=== PATIENT | female | born 1965 | race Caucasian/White ===

== ENCOUNTER 2020-06-15 00:30 | Emergency (ER) | payer MEDICAID, SELFPAY ==
[2020-06-15 00:15] VITALS: BP 163/91; PULSE 101; RESP 15; TEMP 36.8; O2SAT 97; BMI 42.9; BMI 47.2
--- NOTE | 2020-06-15 00:15 | ECG_ITS ---
APPROVED REPORT Exam: Resting ECG HR:98 bpm ECG Measurements Heart Rate 98 AXES AL 142 P 45 QRSd 86 QRS 19 QT 348 T 49 QTc 444 Conclusion Normal sinus rhythm Normal ECG Electronically signed by : Michael Reyna, 06/15/2020 19:10:13
--- NOTE | 2020-06-15 00:16 | XR_ITS ---
PROCEDURE: XR CHEST 2V CLINICAL HISTORY: cp Chest pain COMPARISON: No exams were available for comparison FINDINGS: The cardiomediastinal silhouette and pulmonary vascularity are within normal limits. The lungs are clear without infiltrates, suspicious nodules, or pleural effusions. No acute bony abnormalities. IMPRESSION: No acute findings. Dictated by: Slim Adame MD 06/15/2020 05:17 Slim Adame MD in [place] 06/15/2020 05:17
[2020-06-15 00:27] LABS: Basophils # 0.1 K/mm3 (0-0.2); Basophils % 0.7 % (0.1-2.0); Eosinophils # 0.3 K/mm3 (0.0-0.4); Eosinophils % 3.5 % (0.1-12.0); Hematocrit 42.3 % (37.0-47.0); Hemoglobin 13.8 g/dL (12.2-16.2); Lymphocytes # 2.9 K/mm3 (0.7-4.5); Lymphocytes % 34.9 % (10-50); Mean Corpuscular HGB Conc 32.6 g/dL (31.8-35.4); Mean Corpuscular Hemoglobin 29.7 pg (27.0-31.2); Mean Corpuscular Volume 90.9 fl (81-99); Mean Platelet Volume 8.3 fl (7.4-10.4); Monocytes # 0.6 K/mm3 (0.1-1.0); Monocytes % 7.2 % (1.7-9.3); Neutrophils # 4.4 K/mm3 (1.8-7.8); Neutrophils % 53.8 % (37.0-80.0); Platelet Count 135 K/mm3 (142-424); Red Blood Count 4.66 M/mm3 (4.20-5.40); Red Cell Distribution Width 14.2 % (11.5-17.5); White Blood Count 8.2 K/mm3 (4.8-10.8)
--- NOTE | 2020-06-15 00:31 | HMH.EDGENADL ---
ED Disposition Clinical Impression: Epigastric pain, Atypical chest pain Disposition: Home, Self-Care Condition on Discharge: Good Instructions: DI for Atypical Chest Pain, DI for Epigastric Pain Additional Instructions: You have been evaluated for epigastric pain, atypical chest pain. Please take all medications as prescribed. Follow-up with your primary care doctor in 1 to 2 days. Follow-up with your implementation advisor. Return to the emergency department if you have any new or worsening symptoms, chest pain with exertion, syncope, shortness of breath, any other concern. Referrals: Ana Gonzalez PA [Primary Care Provider] - Time of Disposition: - Critical Care Critical Care Time: No Attestation: On , the high probability of a clinically significant, sudden or life threatening deterioration of the following system(s) required my full and direct attention, intervention and personal management. The time I documented below is in addition to time spent performing reported procedures but includes the following listed in this critical care notation. Medical Decision Making - Medical Records Medical records reviewed: Yes: I reviewed the patient's medical records. - Brian Inquiry Pt receiving controlled substance: No Vital Signs: 06/15/20 00:15 06/15/20 01:46 Temperature 98.3 F Temperature Source Oral Pulse Rate [Right Brachial] 101 H 94 H Respiratory Rate 15 16 Blood Pressure [Right Arm] 163/91 H Blood Pressure Mean [Right Arm] 115 Blood Pressure Source [Right Arm] Automatic Cuff Blood Pressure Position [Right Arm] Sitting 02 Sat by Pulse Oximetry 97 95 Oxygen Delivery Method Room Air Room Air - Lab Data Lab Results 06/15/20 00:15: WBC 8.2, RBC 4.66, Hgb 13.8, Hct 42.3, MCV 90.9, MCH 29.7, MCHC 32.6, RDW 14.2, Plt Count 135 L, MPV 8.3, Neut % (Auto) 53.8, Lymph % (Auto) 34.9, [place] % (Auto) 7.2, Eos % (Auto) 3.5, Baso % (Auto) 0.7, Neut # (Auto) 4.4, Lymph # (Auto) 2.9, [place] # (Auto) 0.6, Eos # (Auto) 0.3, Baso # (Auto) 0.1 06/15/20 00:15: Sodium 137, Potassium 4.4, Chloride 101, Carbon Dioxide 35 H, Anion Gap 5.4, BUN 12, Creatinine 0.90, Estimated Creat Clear 60, Estimated GFR 65, Est GFR ( Amer) 78, Glucose 93, Calcium 9.4, Troponin I < 0.01, Amylase 38 06/15/20 00:15: Lipase 57 06/15/20 00:15: Total Bilirubin 0.4, Direct Bilirubin 0.3, Conjugated Bilirubin 0.0, Indirect Bilirubin 0.1, Unconjugated Bilirubin 0.1, AST 45 H, ALT 45, Alkaline Phosphatase 94, Total Protein 6.9, Albumin 3.8 06/15/20 02:16: Troponin I < 0.01 Result diagrams: 06/15/20 00:15 06/15/20 00:15 Orders (Tests/Meds): ED MEDICATIONS Discontinued Medications Generic Name Dose Route Start Last Admin Trade Name Freq PRN Reason Stop Dose Admin Aspirin 324 mg 06/15/20 00:17 06/15/20 00:20 Aspirin 81mg Chewable Tablet PO 06/15/20 00:18 324 mg ONCE ONE Administration ORDERS Category Date Time Status US RUQ [US abdomen limited] Stat Exams 06/15/20 00:47 Taken XR chest 2V Stat Exams 06/15/20 00:16 Taken Troponin I Q3H Lab 06/15/20 06:30 Ordered - ECG Data Tracing #1 Sinus rhythm with ventricular rate of 98 bpm. QRS 88, QTc 444. Flattening of the ST segments in V1. No other ST segment changes. No arrhythmia. - GENARO Score for Non-Stemi Age of Patient: 50-59 years old Heart Rate: 90-109 bpm Systolic Blood Pressure: 140-159 mmHg Serum Creatinine: 0.40-0.79 mg/dl CHF [place] Class: I-No CHF Other Risk Factors: None Non-Stemi Risk Score: 84 Medical Decision Narrative: In summary this is a 55-year-old female presenting to the emergency department with epigastric pain, bloating. Patient is clinically stable on arrival. Vital signs are stable. Differential diagnoses include acute coronary syndrome, peptic ulcer disease, reflux, indigestion, constipation. Will obtain CBC, CMP, chest x-ray, EKG, troponin profile, lipase. Patient given 325 chewable aspirin. On my evaluation, she says s
[2020-06-15 00:35] LABS: Alanine Aminotransferase 45 U/L (12-78); Albumin Level 3.8 g/dl (3.5-5.0); Alkaline Phosphatase 94 U/L (38-126); Amylase 38 U/L (30-110); Anion Gap 5.4 mEq/L (5-15); Aspartate Amino Transferase 45 U/L (14-36); Bilirubin,Direct 0.3 mg/dl (0.0-0.4); Bilirubin,Indirect 0.1 mg/dL (0.0-0.9); Bilirubin,Total 0.4 mg/dl (0.2-1.3); Bilirubin,Unconjugated 0.1 mg/dL (0.0-1.1); Blood Urea Nitrogen 12 mg/dl (7-17); Calcium 9.4 mg/dl (8.4-10.2); Carbon Dioxide 35 mmol/L (22.0-30.0); Chloride 101 mmol/L (98-107); Creatinine Clearance Estimated 60 mL/min (50-200); Estimated Glomerular Filt Rate 65 ml/min (>60); GFR (African American) 78 ML/MIN (>60); Glucose 93 mg/dl (74-100); Potassium 4.4 mmoL/L (3.5-5.1); Sodium 137 mmol/L (136-145); Total Protein,Serum 6.9 g/dl (6.3-8.2)
[2020-06-15 00:36] LABS: Lipase 57 U/L (23-300)
--- NOTE | 2020-06-15 00:41 | PC.NURSE ---
PT TO RAD VIA WC.
--- NOTE | 2020-06-15 00:47 | US_ITS ---
PROCEDURE: US ABDOMEN LIMITED CLINICAL INDICATION: epigastric, RUQ pain COMPARISON: No exams were available for comparison FINDINGS: PANCREAS: Unremarkable. No obvious mass or abnormal fluid collection. No ductal dilatation LIVER: No focal liver lesions demonstrated. Homogeneous echogenicity. No intrahepatic biliary ductal dilatation evident. There is appropriate direction of blood flow within a non dilated portal vein RIGHT KIDNEY: 4 cm right renal cyst. No hydronephrosis. GALLBLADDER: No gallstones, gallbladder wall thickening, pericholecystic fluid, or biliary dilatation. IMPRESSION: Right renal cyst otherwise negative right upper quadrant. Dictated by: Slim Adame MD 06/15/2020 05:28 Slim Adame MD in [place] 06/15/2020 05:28
[2020-06-15 00:48] LABS: Troponin I < 0.01 ng/ml (0.00-0.034)
--- NOTE | 2020-06-15 00:52 | PC.NURSE ---
PT UP TO ULTRASOUND. DAUGHTER REMAINS AT BEDSIDE
[2020-06-15 01:46] VITALS: PULSE 94; RESP 16; O2SAT 95
[2020-06-15 02:00] VITALS: BP 131/82; PULSE 79; RESP 16; O2SAT 96
[2020-06-15 02:30] VITALS: BP 120/68; PULSE 88; RESP 16; O2SAT 95
[2020-06-15 02:45] LABS: Troponin I < 0.01 ng/ml (0.00-0.034)
[2020-06-15 02:56] VITALS: BP 122/68; PULSE 88; RESP 16; TEMP 36.6; O2SAT 98
== END 2020-06-15 02:59 | disposition home or self-care (01) ==
PROVIDERS: Emergency Provider Emergency Medicine; PCP Physician Assistant Medical
DX: R07.89 Other chest pain (principal); R10.13 Epigastric pain; I10 Essential (primary) hypertension; J45.909 Unspecified asthma, uncomplicated; Z88.6 Allergy status to analgesic agent; Z79.899 Other long term (current) drug therapy; E66.9 Obesity, unspecified; Z68.42 Body mass index [BMI] 45.0-49.9, adult
CPT/HCPCS: 71046; 76705; 80048; 80076; 82150; 83690; 84484; 85025; 93005; 99283

== ENCOUNTER 2020-08-12 17:57 | Inpatient (IN) | payer MEDICAID, SELFPAY ==
[2020-08-12 17:58] VITALS: BP 119/61; PULSE 115; RESP 16; TEMP 37.2; O2SAT 98; BMI 42.9
[2020-08-12 18:06] VITALS: BMI 42.9
--- NOTE | 2020-08-12 18:07 | XR_ITS ---
PROCEDURE: XR HAND RT MIN 3V CLINICAL INDICATION: swollen/redness COMPARISON: CR XR CHEST 2V from 06/15/2020 FINDINGS: No fracture or dislocation. No lytic or blastic change. There is normal mineralization. There is minor narrowing of the 1st carpometacarpal joint. There is mild narrowing of the DIP joints of all the fingers and minor spurring of the IP joint of the thumb. There is mild diffuse soft tissue swelling of the hand particularly dorsum. No foreign bodies are seen. IMPRESSION: Mild generalized soft tissue swelling of the hand suggesting cellulitis, mild osteoarthritic changes base of thumb and DIP joints of the fingers Dictated by: Dr. Earnest Topete MD 08/12/2020 19:50 Dr. Earnest Topete MD in [place] 08/12/2020 19:50
--- NOTE | 2020-08-12 18:15 | HMH.EDGENADL ---
ED Disposition Clinical Impression: Abscess of skin of right wrist, Cellulitis of right wrist Disposition: Admitted as Observation Condition on Discharge: Fair Referrals: Ana Gonzalez PA [Primary Care Provider] - - Critical Care Critical Care Time: No Attestation: On 08/12/20, the high probability of a clinically significant, sudden or life threatening deterioration of the following system(s) required my full and direct attention, intervention and personal management. The time I documented below is in addition to time spent performing reported procedures but includes the following listed in this critical care notation. Medical Decision Making - Brian Inquiry Pt receiving controlled substance: Yes Brian was queried for this patient: Yes Risks and benefits of using a controlled substance: were not discussed with pt by me Vital Signs: 08/12/20 17:58 Temperature 98.9 F Temperature Source Oral Pulse Rate [Right] 115 H Respiratory Rate 16 Blood Pressure [Right Arm] 119/61 Blood Pressure Mean [Right Arm] 80 Blood Pressure Source [Right Arm] Automatic Cuff Blood Pressure Position [Right Arm] Sitting 02 Sat by Pulse Oximetry 98 Oxygen Delivery Method Room Air - Lab Data Lab Results 08/12/20 18:10: WBC 20.5 H*, RBC 4.77, Hgb 13.8, Hct 42.4, MCV 89.0, MCH 28.9, MCHC 32.4, RDW 14.4, Plt Count 260, MPV 8.2, Neut % (Auto) 70.5, Lymph % (Auto) 21.4, [place] % (Auto) 5.8, Eos % (Auto) 1.8, Baso % (Auto) 0.4, Neut # (Auto) 14.5 H, Lymph # (Auto) 4.4, [place] # (Auto) 1.2 H, Eos # (Auto) 0.4, Baso # (Auto) 0.1, Total Counted 100, Neutrophils % (Manual) 76, Band Neutrophils % 8.0, Lymphocytes % (Manual) 15, Monocytes % (Manual) 1 L, Platelet Estimate Normal, RBC Morphology Normal 08/12/20 18:10: Sodium 136, Potassium 4.1, Chloride 100, Carbon Dioxide 32 H, Anion Gap 8.1, BUN 19 H, Creatinine 1.10 H, Estimated Creat Clear 49, Estimated GFR 51 L, Est GFR ( Amer) 62, Glucose 129 H, Calcium 9.5, Total Bilirubin 0.7, AST 41 H, ALT 47, Alkaline Phosphatase 109, Total Protein 7.9, Albumin 4.4, Globulin 3.5 H, Albumin/Globulin Ratio 1.3 08/12/20 18:25: Lactate 1.2 Result diagrams: 08/12/20 18:10 08/12/20 18:10 Orders (Tests/Meds): ED MEDICATIONS Generic Name Dose Route Start Last Admin Trade Name Freq PRN Reason Stop Dose Admin Vancomycin HCl 2,250 mg/ 250 mls @ 125 mls/hr 08/12/20 18:33 08/12/20 18:48 Sodium Chloride IV 08/12/20 20:32 125 mls/hr ONCE ONE Administration Protocol Miscellaneous 1 each 08/12/20 18:30 08/12/20 18:30 Vancomycin Consult Request * 09/11/20 18:29 1 each CONSULT PHARMACY [facility] Administration Discontinued Medications Generic Name Dose Route Start Last Admin Trade Name Freq PRN Reason Stop Dose Admin Hydromorphone HCl 1 mg 08/12/20 18:47 08/12/20 18:48 Hydromorphone 2mg/Ml Syringe IV 08/12/20 18:48 1 mg ONCE ONE Administration Lidocaine/Epinephrine 10 ml 08/12/20 18:27 08/12/20 18:30 Lidocaine 2% W/Epi 1:100,000 20ml Vial IJ 08/12/20 18:28 10 ml ONCE ONE Administration Ondansetron HCl 4 mg 08/12/20 18:47 08/12/20 18:48 Ondansetron 4mg/2ml Vial IV 08/12/20 18:48 4 mg ONCE ONE Administration ORDERS Category Date Time Status Hand XR right minimum 3 views [XR hand RT min 3V] Stat Exams 08/12/20 18:07 Taken Covid-19 Nasal PCR (H) Routine Lab 08/12/20 18:15 Received Blood Culture Stat Micro 08/12/20 18:10 Received Wound Culture and Gram Stain Stat Micro 08/12/20 18:30 Received - Physician Consults Physician Consulted: Jenifer Time: 18:57 Reason -: Admission Comment/Response: Agrees to admit the patient to the hospital. We discussed the patient's clinical information, including history, exam, laboratory and radiology results and ED course. Per hospital procedure, I will write temporary bridge inpatient orders on the patient. Specific orders requested by the admitting physician: Continue vancomycin. Repeat labs in th
[2020-08-12 18:20] LABS: Basophils # 0.1 K/mm3 (0-0.2); Basophils % 0.4 % (0.1-2.0); Eosinophils # 0.4 K/mm3 (0.0-0.4); Eosinophils % 1.8 % (0.1-12.0); Hematocrit 42.4 % (37.0-47.0); Hemoglobin 13.8 g/dL (12.2-16.2); Lymphocytes # 4.4 K/mm3 (0.7-4.5); Lymphocytes % 21.4 % (10-50); Mean Corpuscular HGB Conc 32.4 g/dL (31.8-35.4); Mean Corpuscular Hemoglobin 28.9 pg (27.0-31.2); Mean Platelet Volume 8.2 fl (7.4-10.4); Monocytes # 1.2 K/mm3 (0.1-1.0); Monocytes % 5.8 % (1.7-9.3); Neutrophils # 14.5 K/mm3 (1.8-7.8); Neutrophils % 70.5 % (37.0-80.0); Platelet Count 260 K/mm3 (142-424); Red Blood Count 4.77 M/mm3 (4.20-5.40); Red Cell Distribution Width 14.4 % (11.5-17.5); White Blood Count 20.5 K/mm3 (4.8-10.8)
[2020-08-12 18:22] LABS: MANUAL DIFFERENTIAL MANUAL DIFFERENTIAL (MANUAL DIFF)
--- NOTE | 2020-08-12 18:31 | PC.NURSE ---
Spoke denisa Gonzalez from pharmacy and he advised to give a dose of 2250 now and then give 2250 every 18 hrs
[2020-08-12 18:32] LABS: Alanine Aminotransferase 47 U/L (12-78); Albumin Level 4.4 g/dl (3.5-5.0); Albumin/Globulin Ratio 1.3 (1.1-1.8); Alkaline Phosphatase 109 U/L (38-126); Anion Gap 8.1 mEq/L (5-15); Aspartate Amino Transferase 41 U/L (14-36); Bilirubin,Total 0.7 mg/dl (0.2-1.3); Blood Urea Nitrogen 19 mg/dl (7-17); Calcium 9.5 mg/dl (8.4-10.2); Carbon Dioxide 32 mmol/L (22.0-30.0); Chloride 100 mmol/L (98-107); Creatinine Clearance Estimated 49 mL/min (50-200); Estimated Glomerular Filt Rate 51 ml/min (>60); GFR (African American) 62 ML/MIN (>60); Globulin 3.5 g/dL (1.3-3.2); Glucose 129 mg/dl (74-100); Potassium 4.1 mmoL/L (3.5-5.1); Sodium 136 mmol/L (136-145); Total Protein,Serum 7.9 g/dl (6.3-8.2)
[2020-08-12 18:39] LABS: Lymphocytes % 15 % (10-50); Monocytes % 1 % (2-9); Neutrophils % 76 % (42-76); Platelet Estimate Normal; RBC Morphology Normal; Total Cells Counted 100
[2020-08-12 18:44] LABS: Lactic Acid 1.2 mmol/L (0.7-2.1)
--- NOTE | 2020-08-12 18:54 | PC.NURSE ---
dr cade speaking with dr cedeño
[2020-08-12 20:50] VITALS: BP 122/64; PULSE 117; RESP 16; TEMP 36.9; O2SAT 97
[2020-08-12 21:50] VITALS: BP 111/64; PULSE 114; RESP 16; TEMP 36.9; O2SAT 98; BMI 43.0
--- NOTE | 2020-08-12 21:50 | PC.NURSE ---
PT ARRIVED TO THE FLOOR VIA W/C FROM ED WITH STAFF AT 2150
[2020-08-12 22:00] VITALS: PULSE 112
[2020-08-13 03:56] VITALS: BP 108/60; PULSE 108; RESP 16; TEMP 37.6; O2SAT 90
[2020-08-13 05:17] VITALS: BMI 42.8
[2020-08-13 06:49] LABS: Basophils % 0.2 % (0.1-2.0); Eosinophils # 0.2 K/mm3 (0.0-0.4); Eosinophils % 1.7 % (0.1-12.0); Hematocrit 37.8 % (37.0-47.0); Hemoglobin 12.5 g/dL (12.2-16.2); Lymphocytes # 3.2 K/mm3 (0.7-4.5); Lymphocytes % 22.3 % (10-50); Mean Corpuscular HGB Conc 33.1 g/dL (31.8-35.4); Mean Corpuscular Hemoglobin 29.5 pg (27.0-31.2); Mean Platelet Volume 7.9 fl (7.4-10.4); Monocytes # 0.8 K/mm3 (0.1-1.0); Monocytes % 5.9 % (1.7-9.3); Neutrophils # 9.9 K/mm3 (1.8-7.8); Neutrophils % 69.8 % (37.0-80.0); Platelet Count 187 K/mm3 (142-424); Red Blood Count 4.24 M/mm3 (4.20-5.40); Red Cell Distribution Width 14.7 % (11.5-17.5); White Blood Count 14.2 K/mm3 (4.8-10.8)
[2020-08-13 06:56] LABS: Chloride 102 mmol/L (98-107)
[2020-08-13 06:57] LABS: Potassium 4.1 mmoL/L (3.5-5.1); Sodium 136 mmol/L (136-145)
[2020-08-13 06:59] LABS: Blood Urea Nitrogen 19 mg/dl (7-17); Creatinine Clearance Estimated 42 mL/min (50-200); Estimated Glomerular Filt Rate 42 ml/min (>60); GFR (African American) 51 ML/MIN (>60)
[2020-08-13 07:00] LABS: Anion Gap 8.1 mEq/L (5-15); Calcium 8.8 mg/dl (8.4-10.2); Carbon Dioxide 30 mmol/L (22.0-30.0); Glucose 91 mg/dl (74-100)
--- NOTE | 2020-08-13 07:28 | P.CONPHA_ITS ---
[facility] Pharmacy VTE Monitoring - Patient Demographics Admission date: 08/12/20 Report Date: 08/13/20 Time: 07:28 Allergies/Adverse Reactions: Patient Allergies acetaminophen [From Darvocet-N] Adverse Reaction (Mild, Verified 06/15/20 00:50) aspirin Adverse Reaction (Mild, Verified 06/15/20 00:50) propoxyphene [From Darvocet-N] Adverse Reaction (Mild, Verified 06/15/20 00:50) sumatriptan [From Imitrex] Adverse Reaction (Mild, Verified 06/15/20 00:50) Height: 1.63 m Weight: 113.88 kg Patient Problems: Current Active Problems Abscess of skin of right wrist (Acute) Cellulitis of right wrist (Acute) - VTE Risk Labs: VTE Related Lab Results Hgb 12.5 g/dL (12.2-16.2) 08/13/20 05:24 Hct 37.8 % (37.0-47.0) 08/13/20 05:24 Plt Count 187 K/mm3 (142-424) D 08/13/20 05:24 BUN 19 mg/dl (7-17) H 08/13/20 05:24 Creatinine 1.30 mg/dl (0.52-1.04) H 08/13/20 05:24 Estimated Creat Clear 42 mL/min (50-200) 08/13/20 05:24 VTE Risk Level: Low Risk - Prophylaxis VTE Prophylaxis Ordered?: Yes Types of VTE Prophylaxis: TEDS Knee High Location of Applied Device: Bilateral Lower Extremeties
[2020-08-13 07:38] VITALS: BP 120/83; PULSE 119; RESP 18; TEMP 37.1; O2SAT 96
--- NOTE | 2020-08-13 07:40 | HMH.PHACONS ---
- Pharmacy Consult Date: 08/13/20 Time: 07:40 Referring provider: DR. DE ANDA Reason for Consult:: VANCOMYCIN DOSING Allergies and ADEs:: Allergies Allergy/AdvReac Type Severity Reaction Status Date / Time acetaminophen AdvReac Mild Verified 06/15/20 00:50 [From Darvocet-N] aspirin AdvReac Mild Verified 06/15/20 00:50 propoxyphene AdvReac Mild Verified 06/15/20 00:50 [From Darvocet-N] sumatriptan [From Imitrex] AdvReac Mild Verified 06/15/20 00:50 Home Medications:: Home Medications Medication Instructions Recorded Confirmed Type Albuterol Sulfate [Albuterol 2.5 mg IH NEEDED PRN 06/15/20 08/12/20 History 0.083% 2.5mg/3mL neb] Chlorthalidone 25 mg PO NEEDED PRN 06/15/20 08/12/20 History Cyclobenzaprine HCl 10 mg PO TIDP PRN 06/15/20 08/12/20 History [Cyclobenzaprine 10mg Tab*] Esomeprazole Magnesium 40 mg PO DAILY 06/15/20 08/12/20 History Estrogens, Conjugated [Premarin 0.625 mg PO DAILY 06/15/20 08/12/20 History 0.625mg tablet] Fluticasone Propion/Salmeterol 1 each IH DAILY 06/15/20 08/12/20 History [Fluticasone-Salmeterol 100-50] Gabapentin 600 mg PO TID 06/15/20 08/12/20 History Meloxicam 15 mg PO DAILY 06/15/20 08/12/20 History Montelukast Sodium [Singulair] 10 mg PO PM 06/15/20 08/12/20 History Morphine Sulfate [Morphine Sulfate 15 mg PO TID 06/15/20 08/12/20 History ER] Multivit with Calcium,Iron,Min 1 each PO DAILY 06/15/20 08/12/20 History [Maximum Daily Multivitamin] Oxybutynin Chloride [Oxybutynin 5 mg PO BID 06/15/20 08/12/20 History Chloride ER] Pravastatin Sodium 80 mg PO HS 06/15/20 08/12/20 History Duloxetine HCl [Cymbalta] 60 mg PO DAILY 08/12/20 08/12/20 History Height: 1.63 m Weight: 113.88 kg Laboratory Results:: Laboratory Results - last 24 hr 08/12/20 18:10: WBC 20.5 H*, RBC 4.77, Hgb 13.8, Hct 42.4, MCV 89.0, MCH 28.9, MCHC 32.4, RDW 14.4, Plt Count 260, MPV 8.2, Neut % (Auto) 70.5, Lymph % (Auto) 21.4, [place] % (Auto) 5.8, Eos % (Auto) 1.8, Baso % (Auto) 0.4, Neut # (Auto) 14.5 H, Lymph # (Auto) 4.4, [place] # (Auto) 1.2 H, Eos # (Auto) 0.4, Baso # (Auto) 0.1, Total Counted 100, Neutrophils % (Manual) 76, Band Neutrophils % 8.0, Lymphocytes % (Manual) 15, Monocytes % (Manual) 1 L, Platelet Estimate Normal, RBC Morphology Normal 08/12/20 18:10: Sodium 136, Potassium 4.1, Chloride 100, Carbon Dioxide 32 H, Anion Gap 8.1, BUN 19 H, Creatinine 1.10 H, Estimated Creat Clear 49, Estimated GFR 51 L, Est GFR ( Amer) 62, Glucose 129 H, Calcium 9.5, Total Bilirubin 0.7, AST 41 H, ALT 47, Alkaline Phosphatase 109, Total Protein 7.9, Albumin 4.4, Globulin 3.5 H, Albumin/Globulin Ratio 1.3 08/12/20 18:25: Lactate 1.2 08/13/20 05:24: WBC 14.2 H D, RBC 4.24, Hgb 12.5, Hct 37.8, MCV 89.0, MCH 29.5, MCHC 33.1, RDW 14.7, Plt Count 187 D, MPV 7.9, Neut % (Auto) 69.8, Lymph % (Auto) 22.3, [place] % (Auto) 5.9, Eos % (Auto) 1.7, Baso % (Auto) 0.2, Neut # (Auto) 9.9 H, Lymph # (Auto) 3.2, [place] # (Auto) 0.8, Eos # (Auto) 0.2, Baso # (Auto) 0.0 08/13/20 05:24: Sodium 136, Potassium 4.1, Chloride 102, Carbon Dioxide 30, Anion Gap 8.1, BUN 19 H, Creatinine 1.30 H, Estimated Creat Clear 42, Estimated GFR 42 L, Est GFR ( Amer) 51 L, Glucose 91 D, Calcium 8.8 Medical History: Reports:: Hypertension Denies:: Diabetes Mellitus Type 1, Diabetes Mellitus Type 2 Assessment and Plan - Assessment and plan all Dx Assessment and Plan for all problems:: Age: 55 yo Serum creatinine: 1.3 mg/dL Height: 64.2 Inches Weight (kg): 113.9 Assessment: IBW (kg): 55.16 Dosing wt(kg): 113.9 Estimated Creatinine clearance (ml/min): 42.1 CRCL method: Cockcroft and Gault using ibw(default). Drug selected: Vancomycin Loading dose (mg): 0 Vd (liters): 91.1 (factor used: 0.8 L/kg) Edy (hr-1): 0.039 Half life (hrs): 17.77 Recommended dose: 2250 mg Interval: 24 hrs Infusion time (hrs): 2.0 Predicted peak (mcg/mL): 39.
--- NOTE | 2020-08-13 09:26 | HMH.HP ---
*Admission Date: 08/12/20 <Marisabel Calderon 08/13/20 09:40> *Chief complaint: Cellulitis of the right arm <Marisabel Calderon 08/13/20 09:40> *History of present illness: Ms. Felix is a 55-year-old female who presented to [facility] for evaluation when she noted that the infection in her right arm was worse. She was seen in urgent treatment center about 5 days ago with a sore on her right wrist area which initially looked like a blood blister. She was given a shot of Rocephin and started on Omnicef which she has been taking. She is currently staying with her daughter here in [place] and went to a yesterday. She noted after this that the arm was more swollen and red and hot and more painful. That she presented to the emergency room. She states it was lanced and a wick was placed. She was afebrile she was given a dose of vancomycin. And hydromorphone for the pain.She had an x-ray of the hand which revealed mild generalized soft tissue swelling of the hand suggesting cellulitis, mild osteoarthritis changes at the base of the thumb and DIP joints of the fingers.CBC on admission showed a white count of 20,500 with a hemoglobin of 13.8 and hematocrit of 42.4. This a.m. her white blood cell count has decreased to 14,200. Blood chemistries show normal electrolytes with a BUN of 19 and a creatinine of 1.10. Lactate was 1.2. Wound culture and blood cultures are currently pending. Patient states she did sleep some during the night. Her right arm continues to hurt. She feels there is more swelling in the hand. <Marisabel Calderon 08/13/20 09:40> [facility] History Medical History: Reports:: Asthma, Gastroesophageal Reflux Disease(GERD), Hypertension, Seizures Denies:: Diabetes Mellitus Type 1, Diabetes Mellitus Type 2, Myocardial Infarction, Peripheral Vascular Disease <Marisabel Calderon 08/13/20 09:40> *Have you ever received a pneumonia vaccine?: No <Marisabel Calderon 08/13/20 09:40> *Have you received a flu vaccine this season?: Yes <Marisabel Calderon 08/13/20 09:40> Other Medical History: Reports: Fibromyalgia (She has been on his extended release morphine for 4 to 5 years for this.) <YumikoMarisabel 08/13/20 09:40> Other Surgeries: Yes: Colonoscopy, (x3), Hysterectomy-Total, Tubal Ligation <Calderon,Marisabel 08/13/20 09:40> - *Social History Last grade of school completed: 9th or 10th <Marisabel Calderon 08/13/20 09:40> Smoking Status: Never smoker <Marisabel Calderon 08/13/20 09:40> Alcohol Intake: never <Marisabel Calderon 08/13/20 09:40> *Occupational Status:: disabled <Marisabel Calderon 08/13/20 09:40> *Travel in the last 8 weeks: None <Marisabel Calderon 08/13/20 09:40> Family Hx:: Coronary Artery Disease, Kidney Disease <Marisabel Calderon 08/13/20 09:40> Review of Systems - Constitutional Denies headache(s), Denies weakness <Marisabel Claderon 08/13/20 09:40> - Eyes Denies change in vision <Marisabel Calderon 08/13/20 09:40> - ENT Denies ear pain, Denies sore throat <Marisabel Calderon 08/13/20 09:40> - *Cardiovascular Denies chest pain, Denies shortness of breath <Marisabel Calderon 08/13/20 09:40> - *Respiratory Denies cough, Denies shortness of breath <Marisabel Calderon 08/13/20 09:40> - *Gastrointestinal Denies abdominal pain, Denies nausea, Denies vomiting <Marisabel Calderon 08/13/20 09:40> - *Genitourinary Denies difficulty urinating <Marisabel Calderon 08/13/20 09:40> - *Musculoskeletal Reports abnormal walking (Does use a cane at times) <Marisabel Calderon 08/13/20 09:40> - *Neurologic Reports abnormal walking, Reports unsteadiness, Denies dizziness, Denies seizure-like activity <Marisabel Calderon 08/13/20 09:40> Meds Home Medications Medication Instructions Recorded Confirmed Type Albuterol Sulfate [Albuterol 2.5 mg IH NEEDED PRN 06/15/20 08/12/20 History 0.083% 2.5mg/3mL neb] Chlorthalidone 25 mg PO NEEDED PRN 06/15/20 08/12/20 History Cyclobenzaprine HCl 10 mg PO TIDP AR
--- NOTE | 2020-08-13 10:52 | HMH.GSCON ---
*Admission Date: 08/12/20 *Reason for consult:: Right wrist abscess *History of present illness: This is a 55-year-old female seen in consultation from the service of Dr. Burgess for evaluation and management of a right wrist abscess. Please see HPI forwarded below from admission H&P. Forwarded from admission H&P: Ms. Felix is a 55-year-old female who presented to [facility] for evaluation when she noted that the infection in her right arm was worse. She was seen in urgent treatment center about 5 days ago with a sore on her right wrist area which initially looked like a blood blister. She was given a shot of Rocephin and started on Omnicef which she has been taking. She is currently staying with her daughter here in [place] and went to a yesterday. She noted after this that the arm was more swollen and red and hot and more painful. That she presented to the emergency room. She states it was lanced and a wick was placed. She was afebrile she was given a dose of vancomycin. And hydromorphone for the pain.She had an x-ray of the hand which revealed mild generalized soft tissue swelling of the hand suggesting cellulitis, mild osteoarthritis changes at the base of the thumb and DIP joints of the fingers.CBC on admission showed a white count of 20,500 with a hemoglobin of 13.8 and hematocrit of 42.4. This a.m. her white blood cell count has decreased to 14,200. Blood chemistries show normal electrolytes with a BUN of 19 and a creatinine of 1.10. Lactate was 1.2. Wound culture and blood cultures are currently pending. Patient states she did sleep some during the night. Her right arm continues to hurt. She feels there is more swelling in the hand. Review of Systems - Constitutional Denies chills - Eyes Denies change in vision - ENT Denies difficulty swallowing - *Cardiovascular Denies chest pain - *Respiratory Denies cough - *Gastrointestinal Denies abdominal pain - *Genitourinary Denies difficulty urinating - *Musculoskeletal Reports stiffness - Integumentary/Breasts Reports boil - *Neurologic Reports abnormal walking, Reports unsteadiness, Denies dizziness, Denies headache(s), Denies seizure-like activity, Denies weakness - Psychiatric Denies anxiety - Endocrine Denies cold intolerance - Hematologic/Lymphatic Denies easy bleeding - Allergic/Immunologic Denies wheezing [facility] History Medical History: Reports:: Asthma, Gastroesophageal Reflux Disease(GERD), Hypertension, Seizures Denies:: Diabetes Mellitus Type 1, Diabetes Mellitus Type 2, Myocardial Infarction, Peripheral Vascular Disease *Have you ever received a pneumonia vaccine?: No *Have you received a flu vaccine this season?: Yes Other Medical History: Reports: Fibromyalgia (She has been on his extended release morphine for 4 to 5 years for this.) Other Surgeries: Yes: Colonoscopy, (x3), Hysterectomy-Total, Tubal Ligation - *Social History Last grade of school completed: 9th or 10th Smoking Status: Never smoker Alcohol Intake: never *Occupational Status:: disabled *Travel in the last 8 weeks: None Family Hx:: Coronary Artery Disease, Kidney Disease Meds Home Medications Medication Instructions Recorded Confirmed Type Albuterol Sulfate [Albuterol 2.5 mg IH NEEDED PRN 06/15/20 08/12/20 History 0.083% 2.5mg/3mL neb] Chlorthalidone 25 mg PO NEEDED PRN 06/15/20 06/15/20 History Cyclobenzaprine HCl 10 mg PO TIDP PRN 06/15/20 08/12/20 History [Cyclobenzaprine 10mg Tab*] Esomeprazole Magnesium 40 mg PO DAILY 06/15/20 08/12/20 History Estrogens, Conjugated [Premarin 0.625 mg PO DAILY 06/15/20 08/12/20 History 0.625mg tablet] Fluticasone Propion/Salmeterol 1 each IH DAILY 06/15/20 06/15/20 History [Fluticasone-Salmeterol 100-50] Gabapentin 600 mg PO TID 06/15/20 08/12/20 History Meloxicam 15 mg PO DAILY 06/15/20 08/12/20 History Montelukast Sodium [Singulair] 10 mg PO PM 06/15
--- NOTE | 2020-08-13 11:40 | HMH.PHAINT ---
MEDICATION RECONCILIATION COMPLETED ON PATIENT USING EXTERNAL FILL HISTORY FROM PHARMACY AND PATIENT INTERVIEW. -HENRI JEREZ, QUENTIND
[2020-08-13 15:48] VITALS: BP 107/61; PULSE 95; RESP 18; TEMP 36.9; O2SAT 92
[2020-08-13 19:29] VITALS: BP 126/87; PULSE 105; RESP 18; TEMP 36.9; O2SAT 98
--- NOTE | 2020-08-13 20:22 | PC.NURSE ---
No acute changes this shift. Dsg cdi to R wrist. Plan is for pt to have incision and drainage in the am. CB in reach. VSS. No complaints this shift.
[2020-08-14] VITALS (20 sets, daily range): BP systolic 110–177; BP diastolic 59–98; PULSE 84–109; RESP 12–18; TEMP 36.2–37.2; O2SAT 93–99; BMI 43.2
--- NOTE | 2020-08-14 04:14 | PC.NURSE ---
pt has rested well throughout shift, alert and oriented and able to make needs known, lungs remain clear, heart regular and bs x 4 quads, redness and edema to right hand with some streaking to RAC remains unchanged, pt has needed no prn medication for pain, dressing to right wrist (absessed area) remains clean dry and intact with no drainage noted to outside of dressing, no distress noted at this time, will continue to monitor
[2020-08-14 06:26] LABS: Basophils % 0.4 % (0.1-2.0); Eosinophils # 0.3 K/mm3 (0.0-0.4); Eosinophils % 3.6 % (0.1-12.0); Hematocrit 39.5 % (37.0-47.0); Hemoglobin 12.9 g/dL (12.2-16.2); Lymphocytes # 2.7 K/mm3 (0.7-4.5); Lymphocytes % 30.2 % (10-50); Mean Corpuscular HGB Conc 32.7 g/dL (31.8-35.4); Mean Corpuscular Hemoglobin 28.9 pg (27.0-31.2); Mean Corpuscular Volume 88.5 fl (81-99); Mean Platelet Volume 8.4 fl (7.4-10.4); Monocytes # 0.4 K/mm3 (0.1-1.0); Monocytes % 4.5 % (1.7-9.3); Neutrophils # 5.4 K/mm3 (1.8-7.8); Neutrophils % 61.4 % (37.0-80.0); Platelet Count 193 K/mm3 (142-424); Red Blood Count 4.47 M/mm3 (4.20-5.40); Red Cell Distribution Width 14.3 % (11.5-17.5); White Blood Count 8.9 K/mm3 (4.8-10.8)
[2020-08-14 06:32] LABS: Chloride 104 mmol/L (98-107)
[2020-08-14 06:33] LABS: Potassium 4.1 mmoL/L (3.5-5.1); Sodium 139 mmol/L (136-145)
--- NOTE | 2020-08-14 06:33 | PC.NURSE ---
pt taken to preop with Alok Guevara at this time via wheelchair no distress noted
[2020-08-14 06:36] LABS: Anion Gap 8.1 mEq/L (5-15); Blood Urea Nitrogen 18 mg/dl (7-17); Calcium 9.4 mg/dl (8.4-10.2); Carbon Dioxide 31 mmol/L (22.0-30.0); Creatinine Clearance Estimated 49 mL/min (50-200); Estimated Glomerular Filt Rate 51 ml/min (>60); GFR (African American) 62 ML/MIN (>60); Glucose 100 mg/dl (74-100)
--- NOTE | 2020-08-14 06:53 | HMH.GSPN ---
Subjective Patient reports: no new complaints Progress Note: A&P (1) Asthma Status: Chronic (2) Abscess of skin of right wrist Status: Acute Assessment and plan: Incision and drainage/debridement this morning. (3) Cellulitis of right wrist Status: Acute (4) Fibromyalgia Status: Chronic (5) Seizure disorder Status: Chronic Exam Vital signs and Labs for Last 24 Hours: Temp Pulse Resp BP Pulse Ox 98.6 F 100 H 18 150/83 H 96 08/14/20 04:30 08/14/20 04:30 08/14/20 04:30 08/14/20 04:30 08/14/20 04:30 Laboratory Results - last 24 hr 08/13/20 05:24: WBC 14.2 H D, RBC 4.24, Hgb 12.5, Hct 37.8, MCV 89.0, MCH 29.5, MCHC 33.1, RDW 14.7, Plt Count 187 D, MPV 7.9, Neut % (Auto) 69.8, Lymph % (Auto) 22.3, [place] % (Auto) 5.9, Eos % (Auto) 1.7, Baso % (Auto) 0.2, Neut # (Auto) 9.9 H, Lymph # (Auto) 3.2, [place] # (Auto) 0.8, Eos # (Auto) 0.2, Baso # (Auto) 0.0 08/13/20 05:24: Sodium 136, Potassium 4.1, Chloride 102, Carbon Dioxide 30, Anion Gap 8.1, BUN 19 H, Creatinine 1.30 H, Estimated Creat Clear 42, Estimated GFR 42 L, Est GFR ( Amer) 51 L, Glucose 91 D, Calcium 8.8 08/14/20 05:53: WBC 8.9 D, RBC 4.47, Hgb 12.9, Hct 39.5, MCV 88.5, MCH 28.9, MCHC 32.7, RDW 14.3, Plt Count 193, MPV 8.4, Neut % (Auto) 61.4, Lymph % (Auto) 30.2, [place] % (Auto) 4.5, Eos % (Auto) 3.6, Baso % (Auto) 0.4, Neut # (Auto) 5.4, Lymph # (Auto) 2.7, [place] # (Auto) 0.4, Eos # (Auto) 0.3, Baso # (Auto) 0.0 08/14/20 05:53: Sodium 139, Potassium 4.1, Chloride 104, Carbon Dioxide 31 H, Anion Gap 8.1, BUN 18 H, Creatinine 1.10 H, Estimated Creat Clear 49, Estimated GFR 51 L, Est GFR ( Amer) 62 D, Glucose 100, Calcium 9.4 I & O for Last 24 hours: Intake & Output 08/11/20 08/12/20 08/13/20 08/14/20 11:59 11:59 11:59 11:59 Intake Total 1198 / 1198 1330 / 1330 Balance 1198 / 1198 1330 / 1330 Weight 251 lb 1 oz Microbiology Reports for the Last 24 Hours: Microbiology 08/12/20 18:30 Wrist - Right Gram Stain - Final 08/12/20 18:30 Wrist - Right Wound Culture - Preliminary Gram Positive Cocci - Constitutional no acute distress - *Routine Respiratory Exam Absent: respiratory distress - *Routine Cardiovascular Exam Present: tachycardia - *Routine Extremities Exam Comments: Slight decrease in cellulitic blush along distal wrist/hand. Overall wound essentially unchanged. Central necrosis remains.
--- NOTE | 2020-08-14 07:22 | HMH.OPNOTE ---
Date of procedure: 08/14/20 Pre-op Diagnosis:: Right wrist abscess Post-op Diagnosis:: Same Procedure performed:: Incision and drainage/debridement of right wrist abscess Surgeon:: eLno Avitia MD Apartment Property Manager(s):: Peggy AIRCRAFT COMMUNICATOR:: Josiah Augustin Anesthesia: LMA Estimated blood loss (mL): 5 Operative findings:: Small pockets of purulence/microabscesses along proximal aspect of wound Patchy necrosis of subcutaneous tissue Operative note:: After informed consent was obtained the patient was taken to the operating room and placed in the supine position. General anesthesia with laryngeal mask airway was achieved. Her right wrist was prepped and draped in a sterile fashion. After infiltration local anesthetic the central aspect of the wound was carefully elevated. This was a site of prior focal incision and drainage. Electrocautery was utilized to extend the incision proximally. Small pockets of purulent points/microabscesses were encountered. Fluid was obtained for Gram stain/culture. Patchy areas of necrotic subcutaneous tissue was also noted. This tissue was debrided. The wound was packed open with gauze which was then moistened with 1% lidocaine. Dressings were applied and the patient was transferred to recovery in stable condition. Condition: stable Disposition: PACU Specimens:: Fluid for Gram stain/culture Complications:: No immediate
--- NOTE | 2020-08-14 07:26 | P.PN_ITS ---
[facility] Anesthesia Checklist - Structural Data Admitted From: Inpatient Planned Operative Procedure/s: i/d r wrist Consent for Planned Operative Procedure(s) Verified: Yes - Airway Assessment C-Spine Mobility Assessed: Yes TMJ Mobility Assessed: Yes Dentition: Good Dentition - Neurological Assessment Level of Consciousness: Awake, Alert, Appropriate - Anesthesia Plan Anesthesia Risk discussed: Yes Anesthesia Plan: Verified ASA Class: III Anesthesia Type: General [facility] History I have reviewed the patient's past medical history: Yes Medical History: Reports:: Asthma, Gastroesophageal Reflux Disease(GERD), Hypertension, Seizures Denies:: Diabetes Mellitus Type 1, Diabetes Mellitus Type 2, Myocardial Infarction, Peripheral Vascular Disease *Have you ever received a pneumonia vaccine?: No *Have you received a flu vaccine this season?: Yes Other Medical History: Reports: Fibromyalgia (She has been on his extended release morphine for 4 to 5 years for this.) Anesthesia experience/problems:: none Other Surgeries: Yes: Colonoscopy, (x3), Hysterectomy-Total, Tubal Ligation - *Social History Last grade of school completed: 9th or 10th Smoking Status: Never smoker Alcohol Intake: never Substance Use Type: denies use *Occupational Status:: disabled *Travel in the last 8 weeks: None Family Hx:: Coronary Artery Disease, Kidney Disease
--- NOTE | 2020-08-14 07:28 | HMH.ANESI ---
[facility] Anesthesia Record Part I Intake, IV Amount: 500 Estimated blood loss (mL): 0 Urine output (mL): 0 Blood Pressure: 177/69 SaO2: 94 Pulse Rate: 109 Respiratory Rate: 12 Temperature: 97.5 F Patient is:: Awake, Stable Stable to PACU at:: 07:25
[2020-08-14 07:41] LABS: POC Glucose,Bedside 83 (70-110)
--- NOTE | 2020-08-14 08:58 | HMH.ACPN2 ---
<Marisabel Calderon - Last Filed: 08/14/20 08:58> Internal Medicine - PN: Subj *Date: 08/14/20 *Time: 08:58 Interval history: Patient has already had her I&D of her right wrist per Dr. Mcgee this a.m. She states she was extremely nervous because she was not on her nerve medicine. She is breathing okay without cough. She denies chest pain. Patient had an I&D /debridement of the right wrist Abscess with noted small pockets of purulence/microabscesses along proximal aspect of the wound. Patchy necrosis of subcu tissue.Laboratory data shows a white blood cell count this morning of 8900 with a hemoglobin of 12.9 hematocrit of 39.5. Blood chemistries remain satisfactory. Creatinine has decreased to 1.10. Exam Vital signs and Labs for Last 24 Hours: Temp Pulse Resp BP Pulse Ox 97.5 F L 109 H 12 177/69 H 96 08/14/20 07:29 08/14/20 07:29 08/14/20 07:29 08/14/20 07:29 08/14/20 04:30 Laboratory Results - last 24 hr 08/14/20 05:53: WBC 8.9 D, RBC 4.47, Hgb 12.9, Hct 39.5, MCV 88.5, MCH 28.9, MCHC 32.7, RDW 14.3, Plt Count 193, MPV 8.4, Neut % (Auto) 61.4, Lymph % (Auto) 30.2, [place] % (Auto) 4.5, Eos % (Auto) 3.6, Baso % (Auto) 0.4, Neut # (Auto) 5.4, Lymph # (Auto) 2.7, [place] # (Auto) 0.4, Eos # (Auto) 0.3, Baso # (Auto) 0.0 08/14/20 05:53: Sodium 139, Potassium 4.1, Chloride 104, Carbon Dioxide 31 H, Anion Gap 8.1, BUN 18 H, Creatinine 1.10 H, Estimated Creat Clear 49, Estimated GFR 51 L, Est GFR ( Amer) 62 D, Glucose 100, Calcium 9.4 08/14/20 07:34: POC Glucose 83 I & O for Last 24 hours: Intake & Output 02/13/21 08/12/20 08/13/20 08/14/20 11:59 11:59 11:59 11:59 Intake Total 1198 / 1198 1830 / 1830 Balance 1198 / 1198 1830 / 1830 Weight 251 lb 1 oz 253 lb 1.451 oz Microbiology Reports for the Last 24 Hours: Microbiology 08/12/20 18:30 Wrist - Right Gram Stain - Final 08/12/20 18:30 Wrist - Right Wound Culture - Preliminary Gram Positive Cocci - Constitutional no acute distress Comments: Appears comfortable sitting up in the bed. Assists with exam. - *Routine Respiratory Exam Present: CTA bilaterally (Anteriorly and posteriorly). Absent: wheezes - *Routine Cardiovascular Exam Present: RRR - *Routine Abdominal Exam Present: soft, normoactive bowel sounds. Absent: tenderness - *Routine Extremities Exam Absent: edema, calf tenderness - *Routine Neurological Exam Present: alert, oriented X3 Assessment and Plan (1) Asthma Status: Chronic Category: Medical Code(s): J45.909 - Unspecified asthma, uncomplicated (2) Abscess of skin of right wrist Status: Acute Category: Medical Code(s): L02.413 - Cutaneous abscess of right upper limb (3) Cellulitis of right wrist Status: Acute Category: Medical Code(s): L03.113 - Cellulitis of right upper limb (4) Fibromyalgia Status: Chronic Category: Medical Code(s): M79.7 - Fibromyalgia (5) Seizure disorder Status: Chronic Category: Medical Code(s): G40.909 - Epilepsy, unspecified, not intractable, without status epilepticus - Assessment and plan all Dx Assessment and Plan for all problems:: Will restart Spiriva. Wound care as per surgeon Dr. Mcgee. <Michel Burgess - Last Filed: 08/14/20 09:53> Internal Medicine - PN: Subj *Date: 08/14/20 *Time: 09:53 Exam Vital signs and Labs for Last 24 Hours: Temp Pulse Resp BP Pulse Ox 98.0 F 88 18 128/82 95 08/14/20 08:15 08/14/20 08:15 08/14/20 08:15 08/14/20 08:15 08/14/20 08:15 Laboratory Results - last 24 hr 08/14/20 05:53: WBC 8.9 D, RBC 4.47, Hgb 12.9, Hct 39.5, MCV 88.5, MCH 28.9, MCHC 32.7, RDW 14.3, Plt Count 193, MPV 8.4, Neut % (Auto) 61.4, Lymph % (Auto) 30.2, [place] % (Auto) 4.5, Eos % (Auto) 3.6, Baso % (Auto) 0.4, Neut # (Auto) 5.4, Lymph # (Auto) 2.7, [place] # (Auto) 0.4, Eos # (Auto) 0.3, Baso # (Auto) 0.0 08/14/20 05:53: Sodium 139, Potassium 4.1, Chloride 104, Carbon Dioxide 31
[2020-08-14 16:15] LABS: Vancomycin,Trough 9.3 ug/mL (5.0-10.0)
--- NOTE | 2020-08-14 16:18 | HMH.PHACONS ---
- Pharmacy Consult Date: 08/14/20 Time: 16:18 Referring provider: DR. DE ANDA Reason for Consult:: VANCOMYCIN TROUGH AND DOSING CHANGE Allergies and ADEs:: Allergies Allergy/AdvReac Type Severity Reaction Status Date / Time acetaminophen AdvReac Mild Verified 06/15/20 00:50 [From Darvocet-N] aspirin AdvReac Mild Verified 06/15/20 00:50 propoxyphene AdvReac Mild Verified 06/15/20 00:50 [From Darvocet-N] sumatriptan [From Imitrex] AdvReac Mild Verified 06/15/20 00:50 Home Medications:: Home Medications Medication Instructions Recorded Confirmed Type Albuterol Sulfate [Albuterol 2.5 mg IH NEEDED PRN 06/15/20 08/12/20 History 0.083% 2.5mg/3mL neb] Chlorthalidone 25 mg PO NEEDED PRN 06/15/20 08/13/20 History Cyclobenzaprine HCl 10 mg PO TIDP PRN 06/15/20 08/12/20 History [Cyclobenzaprine 10mg Tab*] Esomeprazole Magnesium 40 mg PO DAILY 06/15/20 08/12/20 History Estrogens, Conjugated [Premarin 0.625 mg PO DAILY 06/15/20 08/12/20 History 0.625mg tablet] Gabapentin 600 mg PO TID 06/15/20 08/12/20 History Meloxicam 15 mg PO DAILY 06/15/20 08/12/20 History Montelukast Sodium [Singulair] 10 mg PO PM 06/15/20 08/12/20 History Morphine Sulfate [Morphine Sulfate 15 mg PO TID 06/15/20 08/12/20 History ER] Multivit with Calcium,Iron,Min 1 each PO DAILY 06/15/20 08/12/20 History [Maximum Daily Multivitamin] Pravastatin Sodium 80 mg PO HS 06/15/20 08/12/20 History Duloxetine HCl [Cymbalta] 60 mg PO DAILY 08/12/20 08/12/20 History ALPRAZolam [Xanax 1mg tab] 1 mg PO QID 08/13/20 08/13/20 History Cefdinir [Omnicef 300mg Capsule] 300 mg PO BID 08/13/20 08/13/20 History Losartan Potassium [Cozaar 100mg 100 mg PO DAILY 08/13/20 08/13/20 History Tablets] Oxybutynin Chloride [Oxybutynin 15 mg PO DAILY 08/13/20 08/13/20 History Chloride ER] Tiotropium [place] [Spiriva 2 puffs IH DAILY 08/13/20 08/13/20 History Respimat] Height: 1.63 m Weight: 114.8 kg Laboratory Results:: Laboratory Results - last 24 hr 08/14/20 05:53: WBC 8.9 D, RBC 4.47, Hgb 12.9, Hct 39.5, MCV 88.5, MCH 28.9, MCHC 32.7, RDW 14.3, Plt Count 193, MPV 8.4, Neut % (Auto) 61.4, Lymph % (Auto) 30.2, [place] % (Auto) 4.5, Eos % (Auto) 3.6, Baso % (Auto) 0.4, Neut # (Auto) 5.4, Lymph # (Auto) 2.7, [place] # (Auto) 0.4, Eos # (Auto) 0.3, Baso # (Auto) 0.0 08/14/20 05:53: Sodium 139, Potassium 4.1, Chloride 104, Carbon Dioxide 31 H, Anion Gap 8.1, BUN 18 H, Creatinine 1.10 H, Estimated Creat Clear 49, Estimated GFR 51 L, Est GFR ( Amer) 62 D, Glucose 100, Calcium 9.4 08/14/20 07:34: POC Glucose 83 08/14/20 14:40: Vancomycin Trough 9.3 Medical History: Reports:: Asthma, Gastroesophageal Reflux Disease(GERD), Hypertension, Seizures Denies:: Diabetes Mellitus Type 1, Diabetes Mellitus Type 2, Myocardial Infarction, Peripheral Vascular Disease Assessment and Plan (1) Asthma Status: Chronic Category: Medical Code(s): J45.909 - Unspecified asthma, uncomplicated (2) Abscess of skin of right wrist Status: Acute Category: Medical Code(s): L02.413 - Cutaneous abscess of right upper limb (3) Cellulitis of right wrist Status: Acute Category: Medical Code(s): L03.113 - Cellulitis of right upper limb (4) Fibromyalgia Status: Chronic Category: Medical Code(s): M79.7 - Fibromyalgia (5) Seizure disorder Status: Chronic Category: Medical Code(s): G40.909 - Epilepsy, unspecified, not intractable, without status epilepticus - Assessment and plan all Dx Assessment and Plan for all problems:: BASED ON PATIENT'S TROUGH LEVEL 9.3 MCG/ML, RECOMMEND CHANGING VANCOMYCIN DOSING FROM 2250 MG Q24H TO 2000 MG Q18H AT THIS TIME. PREDICTED PEAK OF 35.9 MCG/ML AND TROUGH OF 14.0 MCG/ML. PHARMACY WILL FOLLOW DAILY AND ADJUST APPROPRIATE.
--- NOTE | 2020-08-14 17:56 | PC.NURSE ---
PT HAS DONE WELL POST OP. NO C/O PAIN SINCE SURGERY. PT HAS AMBULATED INDEPENDENTLY IN ROOM. PT HOPES TO GO HOME TOMORROW. VSS. WILL CONT. TO MONITOR.
[2020-08-15] VITALS: BP 106/62; PULSE 80; RESP 16; TEMP 36.5; O2SAT 100
[2020-08-15 04:00] VITALS: BP 114/53; PULSE 65; RESP 17; TEMP 36.4; O2SAT 93
--- NOTE | 2020-08-15 05:20 | PC.NURSE ---
A&OX4. PT HAS TOLERATED RA WELL THROUGHOUT SHIFT. RESPIRATIONS REGULAR AND UNLABORED. LUNG SOUNDS BILATERALLY CLEAR. NO COUGH NOTED. HAND SUPERINTENDENT COLLIERY EQUAL. +2 PULSES NOTED THROUGHOUT. ACTIVE BOWEL SOUNDS HEARD IN ALL 4 QUADRANTS. SOFT AND NONTENDER ABDOMEN. NO BM REPORTED. PT VOIDS PER BATHROOM INDEPENDENTLY. PT REPORTED PAIN ONCE AND RECEIVED SCHEDULED PAIN MEDS PER AUG. ON REASSESSMENT, PT STATED PAIN WAS TOLERABLE. PT HAD SOME GASTRIC DISCOMFORT DURING THE NIGHT ONCE. SHE STATED THIS IS NORMAL FOR HER AND WAS ABLE TO GET RELIEF AFTER DRINKING A POP AND BELCHING. PT HAS RESTED WELL TONIGHT. BED IN LOWEST POSITION. CALL LIGHT WITHIN REACH. VSS. WILL CONTINUE TO MONITOR.
--- NOTE | 2020-08-15 07:23 | PC.NURSE ---
LAB CALLED W BLOOD CULTURE RESULT. R WRIST CULTURE MRSA POSITIVE. PASSED ALONG TO Bailey BLACKBURN RN. SHE STATED SHE WOULD NOTIFY THE
[2020-08-15 07:29] VITALS: BP 141/49; PULSE 82; RESP 18; TEMP 36.8; O2SAT 97
--- NOTE | 2020-08-15 08:16 | HMH.ACPN2 ---
Internal Medicine - PN: Subj *Date: 08/15/20 *Time: 08:16 Interval history: Patient has improved, anxious to go home. Exam Vital signs and Labs for Last 24 Hours: Temp Pulse Resp BP Pulse Ox 98.2 F 82 18 141/49 H 97 08/15/20 07:29 08/15/20 07:29 08/15/20 07:29 08/15/20 07:29 08/15/20 07:29 Laboratory Results - last 24 hr 08/14/20 14:40: Vancomycin Trough 9.3 Vital Signs - 24 hr 08/14/20 08:20 08/14/20 08:35 08/14/20 08:50 Temperature 98.1 F 98.1 F 98.2 F Pulse Rate [Apical] 89 91 H 91 H Respiratory Rate 16 17 17 Blood Pressure [Left Arm] 143/74 H 136/78 162/90 H 02 Sat by Pulse Oximetry 94 L 93 L 94 L 08/14/20 09:05 08/14/20 10:05 08/14/20 10:09 Temperature 98.1 F 99.0 F 98.2 F Pulse Rate [Apical] 99 H 100 H 87 Respiratory Rate 16 17 18 Blood Pressure [Left Arm] 177/98 H 138/75 112/59 L 02 Sat by Pulse Oximetry 93 L 95 99 08/14/20 10:35 08/14/20 11:05 08/14/20 12:05 Temperature 98.7 F 98.5 F 98.9 F Pulse Rate [Apical] 95 H 91 H 90 Respiratory Rate 16 17 17 Blood Pressure [Left Arm] 135/62 140/82 139/90 02 Sat by Pulse Oximetry 96 95 96 08/14/20 13:05 08/14/20 14:05 08/14/20 15:05 Temperature 98.8 F 98.7 F 98.4 F Pulse Rate [Apical] 100 H 95 H 84 Respiratory Rate 16 17 16 Blood Pressure [Left Arm] 137/78 135/80 115/65 02 Sat by Pulse Oximetry 96 95 95 08/14/20 20:00 08/15/20 00:00 08/15/20 04:00 Temperature 97.9 F 97.7 F 97.6 F Pulse Rate [Apical] 92 H 80 65 Respiratory Rate 16 16 17 Blood Pressure [Left Arm] 140/65 106/62 L 114/53 L 02 Sat by Pulse Oximetry 96 100 93 L 08/15/20 07:29 Temperature 98.2 F Pulse Rate [Apical] 82 Respiratory Rate 18 Blood Pressure [Left Arm] 141/49 H 02 Sat by Pulse Oximetry 97 I & O for Last 24 hours: Intake & Output 08/12/20 08/13/20 08/14/20 08/15/20 23:59 23:59 23:59 23:59 Intake Total 958 / 958 1570 / 1570 1110 / 1110 480 / 480 Balance 958 / 958 1570 / 1570 1110 / 1110 480 / 480 Weight 251 lb 1 oz 251 lb 1 oz 253 lb 1.451 oz Microbiology Reports for the Last 24 Hours: Microbiology 08/14/20 07:08 Wrist - Right Gram Stain - Final 08/14/20 07:08 Wrist - Right Abscess Culture - Preliminary 08/12/20 18:30 Wrist - Right Gram Stain - Final 08/12/20 18:30 Wrist - Right Wound Culture - Final Staphylococcus aureus 08/12/20 18:10 Blood Blood Culture - Preliminary NO GROWTH AFTER 48 HOURS 08/12/20 18:10 Blood Blood Culture - Preliminary NO GROWTH AFTER 48 HOURS - Constitutional no acute distress - *Routine HEENT Exam Head: Present: normocephalic Eye: Present: EOMI ENT: Present: mucous membranes moist - *Routine Neck Exam Present: supple. Absent: lymphadenopathy - *Routine Respiratory Exam Present: CTA bilaterally - *Routine Cardiovascular Exam Present: RRR - *Routine Abdominal Exam Present: soft, normoactive bowel sounds. Absent: tenderness - *Routine Extremities Exam Present: edema (much less over right hand, dressing in place). Absent: cyanosis, clubbing - *Routine Skin Exam Present: warm. Absent: rash - *Routine Neurological Exam Present: alert, oriented X3 Assessment and Plan (1) Asthma Status: Chronic Category: Medical Code(s): J45.909 - Unspecified asthma, uncomplicated (2) Abscess of skin of right wrist Status: Acute Category: Medical Code(s): L02.413 - Cutaneous abscess of right upper limb (3) Cellulitis of right wrist Status: Acute Category: Medical Code(s): L03.113 - Cellulitis of right upper limb (4) Fibromyalgia Status: Chronic Category: Medical Code(s): M79.7 - Fibromyalgia (5) Seizure disorder Status: Chronic Category: Medical Code(s): G40.909 - Epilepsy, unspecified, not intractable, without status epilepticus (6) MRSA (methicillin resistant staph aureus) culture positive Status: Acute Category: Medical Code(s): Z22.322 -
--- NOTE | 2020-08-15 08:19 | HMH.GSPN ---
Subjective Patient reports: feels better Progress Note: A&P (1) Asthma Status: Chronic (2) Abscess of skin of right wrist Status: Acute Assessment and plan: Overall, doing well status post incision and drainage/debridement. Continue antibiotics as per primary service Likely discharge home soon with outpatient follow-up (3) Cellulitis of right wrist Status: Acute (4) Fibromyalgia Status: Chronic (5) Seizure disorder Status: Chronic (6) MRSA (methicillin resistant staph aureus) culture positive Status: Acute Exam Vital signs and Labs for Last 24 Hours: Temp Pulse Resp BP Pulse Ox 98.2 F 82 18 141/49 H 97 08/15/20 07:29 08/15/20 07:29 08/15/20 07:29 08/15/20 07:29 08/15/20 07:29 Laboratory Results - last 24 hr 08/14/20 14:40: Vancomycin Trough 9.3 I & O for Last 24 hours: Intake & Output 08/12/20 08/13/20 08/14/20 08/15/20 11:59 11:59 11:59 11:59 Intake Total 1198 / 1198 1830 / 1830 1090 / 1090 Balance 1198 / 1198 1830 / 1830 1090 / 1090 Weight 251 lb 1 oz 253 lb 1.451 oz Microbiology Reports for the Last 24 Hours: Microbiology 08/14/20 07:08 Wrist - Right Gram Stain - Final 08/14/20 07:08 Wrist - Right Abscess Culture - Preliminary 08/12/20 18:30 Wrist - Right Gram Stain - Final 08/12/20 18:30 Wrist - Right Wound Culture - Final Staphylococcus aureus 08/12/20 18:10 Blood Blood Culture - Preliminary NO GROWTH AFTER 48 HOURS 08/12/20 18:10 Blood Blood Culture - Preliminary NO GROWTH AFTER 48 HOURS - Constitutional no acute distress - *Routine Respiratory Exam Absent: respiratory distress - *Routine Cardiovascular Exam Present: RRR - *Routine Extremities Exam Comments: dressing in place. no spreading cellulitis
--- NOTE | 2020-08-15 08:54 | HMH.ACPN2 ---
<Marisabel Calderon - Last Filed: 08/15/20 08:59> Internal Medicine - PN: Subj *Date: 08/15/20 *Time: 08:59 Interval history: Patient states she is doing well. She feels that her right hand is much better. She ate well yesterday she She slept well last. She is ready to go home. Exam Vital signs and Labs for Last 24 Hours: Temp Pulse Resp BP Pulse Ox 98.2 F 82 18 141/49 H 97 08/15/20 07:29 08/15/20 07:29 08/15/20 07:29 08/15/20 07:29 08/15/20 07:29 Laboratory Results - last 24 hr 08/14/20 14:40: Vancomycin Trough 9.3 I & O for Last 24 hours: Intake & Output 08/12/20 08/13/20 08/14/20 08/15/20 11:59 11:59 11:59 11:59 Intake Total 1198 / 1198 1830 / 1830 1090 / 1090 Balance 1198 / 1198 1830 / 1830 1090 / 1090 Weight 251 lb 1 oz 253 lb 1.451 oz Microbiology Reports for the Last 24 Hours: Microbiology 08/14/20 07:08 Wrist - Right Gram Stain - Final 08/14/20 07:08 Wrist - Right Abscess Culture - Preliminary 08/12/20 18:30 Wrist - Right Gram Stain - Final 08/12/20 18:30 Wrist - Right Wound Culture - Final Staphylococcus aureus 08/12/20 18:10 Blood Blood Culture - Preliminary NO GROWTH AFTER 48 HOURS 08/12/20 18:10 Blood Blood Culture - Preliminary NO GROWTH AFTER 48 HOURS - Constitutional no acute distress - *Routine Respiratory Exam Present: CTA bilaterally (Anteriorly and posteriorly) - *Routine Cardiovascular Exam Present: RRR - *Routine Abdominal Exam Present: soft, normoactive bowel sounds. Absent: tenderness - *Routine Extremities Exam Absent: edema (No leg edema.) Comments: Edema in the right hand and lower arm is greatly reduced. There is no surrounding erythema. Dressing is clean and dry. Assessment and Plan (1) Asthma Status: Chronic Category: Medical Code(s): J45.909 - Unspecified asthma, uncomplicated (2) Abscess of skin of right wrist Status: Acute Category: Medical Code(s): L02.413 - Cutaneous abscess of right upper limb (3) Cellulitis of right wrist Status: Acute Category: Medical Code(s): L03.113 - Cellulitis of right upper limb (4) Fibromyalgia Status: Chronic Category: Medical Code(s): M79.7 - Fibromyalgia (5) Seizure disorder Status: Chronic Category: Medical Code(s): G40.909 - Epilepsy, unspecified, not intractable, without status epilepticus (6) MRSA (methicillin resistant staph aureus) culture positive Status: Acute Category: Medical Code(s): Z22.322 - Carrier or suspected carrier of Methicillin resistant Staphylococcus aureus - Assessment and plan all Dx Assessment and Plan for all problems:: Patient is ready for discharge. Wound culture reveals MRSA with many p.o. antibiotic sensitivities. Will discharge home today on clindamycin. Wound care was explained by Dr. Avitia, surgeon, who saw her as well this AM. She will do twice daily dressing changes. <Michel Burgess - Last Filed: 08/15/20 09:41> Internal Medicine - PN: Subj *Date: 08/15/20 *Time: 09:41 Exam Vital signs and Labs for Last 24 Hours: Temp Pulse Resp BP Pulse Ox 98.2 F 82 18 141/49 H 97 08/15/20 07:29 08/15/20 07:29 08/15/20 07:29 08/15/20 07:29 08/15/20 07:29 Laboratory Results - last 24 hr 08/14/20 14:40: Vancomycin Trough 9.3 I & O for Last 24 hours: Intake & Output 08/12/20 08/13/20 08/14/20 08/15/20 23:59 23:59 23:59 23:59 Intake Total 958 / 958 1570 / 1570 1110 / 1110 480 / 480 Balance 958 / 958 1570 / 1570 1110 / 1110 480 / 480 Weight 251 lb 1 oz 251 lb 1 oz 253 lb 1.451 oz Microbiology Reports for the Last 24 Hours: Microbiology 08/14/20 07:08 Wrist - Right Gram Stain - Final 08/14/20 07:08 Wrist - Right Abscess Culture - Preliminary 08/12/20 18:30 Wrist - Right Gram Stain - Final 08/12/20 18:30 Wrist - Right Wound Culture - Final
--- NOTE | 2020-08-15 13:09 | P.PN_ITS ---
[facility] Anesthesia Record Part II Discharge Time: 08:15 Destination: Medical Surgical Department PACU nurse assessment reviewed?: Yes Patient Condition:: Good Anesthesia Complications:: None Swallowing reflex intact?: Yes Cyanosis?: No Blood Pressure: 128/82 Pulse Rate: 88 Temperature: 98 F Mental Status: Alert & Oriented Pain level:: 4 Nausea and/or vomitting:: None Intake, IV Amount: 0
[2020-08-15 13:10] VITALS: BP 128/82; PULSE 88; TEMP 36.6
--- NOTE | 2020-08-15 14:22 | HMH.DCSUM ---
General - General Admission date:: 08/12/20 Discharge date: 08/15/20 HPI HPI: Ms. Felix is a 55-year-old female who presented to [facility] for evaluation when she noted that the infection in her right arm was worse. She was seen in urgent treatment center about 5 days ago with a sore on her right wrist area which initially looked like a blood blister. She was given a shot of Rocephin and started on Omnicef which she has been taking. She is currently staying with her daughter here in [place] and went to a yesterday. She noted after this that the arm was more swollen and red and hot and more painful, thus she presented to the emergency room. She states it was lanced and a wick was placed. She was afebrile she was given a dose of vancomycin and hydromorphone for the pain. She had an x-ray of the hand which revealed mild generalized soft tissue swelling of the hand suggesting cellulitis, mild osteoarthritis changes at the base of the thumb and DIP joints of the fingers. CBC on admission showed a white count of 20,500 with a hemoglobin of 13.8 and hematocrit of 42.4. This a.m. her white blood cell count has decreased to 14,200. Blood chemistries show normal electrolytes with a BUN of 19 and a creatinine of 1.10. Lactate was 1.2. Wound culture and blood cultures are currently pending. Patient states she did sleep some during the night. Her right arm continues to hurt. She feels there is more swelling in the hand. Hospital Course Hospital Course: The patient was started on IV vancomycin and pain medication. Surgery was consulted and Dr. Avitia saw the patient. He wanted to perform a debridement in the OR. This was performed on 08/14/2020. She tolerated the procedure well but was extremely anxious because she had not had any of her nerve medication. She was restarted on her Spiriva, losartan, and Xanax. By 08/15/2020, she was anxious to go home. Dr. Avitia felt she could be discharged on continued antibiotics and would need to follow-up in the office. Her wound culture revealed MRSA. She was stable to be discharged home on clindamycin and will do twice daily dressing changes. Objective Vital signs: Temp Pulse Resp BP Pulse Ox 98 F 88 18 128/82 97 08/15/20 13:10 08/15/20 13:10 08/15/20 07:29 08/15/20 13:10 08/15/20 07:29 Narrative: - Constitutional no acute distress Comments: Sitting up in the bed and appears comfortable - *Routine HEENT Exam Head: Present: normocephalic, atraumatic Eye: Present: PERRL. Absent: conjunctival icterus, scleral injection ENT: Present: mucous membranes moist, oropharynx clear - *Routine Neck Exam Present: supple, full ROM. Absent: carotid bruit, lymphadenopathy, thyromegaly - *Routine Respiratory Exam Present: wheezes (Rare) - *Routine Cardiovascular Exam Present: RRR - *Routine Abdominal Exam Present: soft, normoactive bowel sounds. Absent: tenderness, distended - *Routine Extremities Exam Present: edema (Right forearm and hand.) Comments: No leg edema. Right outer wrist with 3 cm raised area with center with wick. Surrounding ecchymosis and erythema to about 6 cm. Discoloration of the hand with edema. No erythema otherwise. She can move all fingers. She has a good radial pulse. - *Routine Neurological Exam Present: alert, oriented X3 Results Labs on day of discharge: Labs from last 24 hours 08/14/20 14:40 Vancomycin Trough 9.3 Preliminary micro results at discharge 08/14/20 07:08 Abscess Culture - Preliminary Wrist - Right 08/12/20 18:10 Blood Culture - Preliminary Blood NO GROWTH AFTER 48 HOURS 08/12/20 18:10 Blood Culture - Preliminary Blood NO GROWTH AFTER 48 HOURS DS: Diagnosis - Discharge Diagnosis (1) Asthma Status: Chronic (2) Abscess of skin of right wrist Status: Acute (3) Cellulitis of right wrist Status: Acute
== END 2020-08-15 11:00 | disposition home or self-care (01) | DRG 603 ==
LOC: ER 19:04 → 2ND 08-13 07:22
PROVIDERS: Nurse Practitioner Family; Surgery; Admitting Provider Family Medicine; Emergency Provider Emergency Medicine; PCP Physician Assistant Medical; Visit Provider Family Medicine
PROC: 0H9DXZZ Drainage of Right Lower Arm Skin, External Approach (ICD-10-PCS; CPT 10061; principal; 2020-08-14 07:30)
DX: L03.113 Cellulitis of right upper limb (principal); L02.413 Cutaneous abscess of right upper limb; Z88.8 Allergy status to other drugs, medicaments and biological substances; Z88.1 Allergy status to other antibiotic agents; Z79.890 Hormone replacement therapy; Z79.899 Other long term (current) drug therapy; Z79.82 Long term (current) use of aspirin; B95.62 Methicillin resistant Staphylococcus aureus infection as the cause of diseases classified elsewhere; Z79.51 Long term (current) use of inhaled steroids; I10 Essential (primary) hypertension; J45.909 Unspecified asthma, uncomplicated; G40.909 Epilepsy, unspecified, not intractable, without status epilepticus
CPT/HCPCS: 10061; 36415; 73130; 80048; 80053; 80202; 82962; 83605; 85007; 85025; 87040; 87070; 87075; 87077; 87186; 87205; 96365; 96374; 96375; 99285; J2405; J3370; U0003

== ENCOUNTER → 2021-06-26 14:14 | Outpatient (CLI) | payer MEDICAID, SELFPAY | PROVIDERS: Visit Provider Nurse Practitioner | DX: U07.1 COVID-19 (principal) | CPT/HCPCS: C9803; U0003; U0005 ==

== ENCOUNTER 2021-07-21 20:10 | Emergency (ER) | payer MEDICAID, SELFPAY ==
[2021-07-21 20:01] VITALS: BP 143/84; PULSE 110; RESP 20; TEMP 36.9; O2SAT 89; BMI 42.9
--- NOTE | 2021-07-21 20:19 | XR_ITS ---
PROCEDURE INFORMATION: Exam: XR Chest Exam date and time: 07/21/2021 8:19 PM Age: 56 years old Clinical indication: Shortness of breath; Additional info: SOA TECHNIQUE: Imaging protocol: XR of the chest. Views: 2 views. COMPARISON: CR XR CHEST 2V 06/15/2020 12:25 AM FINDINGS: Lungs: Unremarkable. No consolidation. Pleural spaces: Unremarkable. No pleural effusion. No pneumothorax. Heart/Mediastinum: Unremarkable. No cardiomegaly. Bones/joints: Unremarkable. IMPRESSION: No acute findings.
--- NOTE | 2021-07-21 20:19 | ECG_ITS ---
APPROVED REPORT Exam: Resting ECG HR:109 bpm ECG Measurements Heart Rate 109 AXES WY 154 P 54 QRSd 90 QRS 29 QT 335 T 59 QTc 399 Conclusion SINUS TACHYCARDIA LOW QRS VOLTAGE IN PRECORDIAL LEADS [QRS DEFLECTION < 1.0 mV IN CHEST LEADS] ABNORMAL RHYTHM ECG UNCONFIRMED REPORT Electronically signed by : Michael Reyna MD 07/22/2021 18:34:43
[2021-07-21 20:23] LABS: ABG Base Excess -1.1 mmol/L (-2.4-2.3); ABG HCO3 24.7 mmhg (22.0-26.0); ABG Oxygen Saturation 92 % (90-100); ABG PCO2 46.7 mmhg (35.0-45.0); ABG PH 7.34 mmol/L (7.35-7.45); ABG PO2 62.7 mmhg (80-100); ABG TCO2 26.1 mmhg (23-27)
[2021-07-21 20:24] LABS: Allen's Test Y; Oxygen R/A %
[2021-07-21 20:25] LABS: Coronavirus 19, PCR Not Detected (NotDetected); Influenza A, PCR Not Detected (NotDetected); Influenza B, PCR Not Detected (NotDetected)
[2021-07-21 20:37] LABS: Basophils # 0.1 K/mm3 (0-0.2); Eosinophils # 0.8 K/mm3 (0.0-0.4); Eosinophils % 6.6 % (0.1-12.0); Hematocrit 37.9 % (37.0-47.0); Hemoglobin 12.6 g/dL (12.2-16.2); Lymphocytes # 4.2 K/mm3 (0.7-4.5); Lymphocytes % 36.4 % (10-50); Mean Corpuscular HGB Conc 33.2 g/dL (31.8-35.4); Mean Corpuscular Volume 90.3 fl (81-99); Mean Platelet Volume 9.4 fl (7.4-10.4); Monocytes # 0.8 K/mm3 (0.1-1.0); Monocytes % 6.9 % (1.7-9.3); Neutrophils # 5.6 K/mm3 (1.8-7.8); Neutrophils % 49.1 % (37.0-80.0); Platelet Count 200 K/mm3 (142-424); Red Cell Distribution Width 14.1 % (11.5-17.5); White Blood Count 11.4 K/mm3 (4.8-10.8)
[2021-07-21 20:41] LABS: Alanine Aminotransferase 43 U/L (12-78); Albumin Level 3.8 g/dl (3.5-5.0); Albumin/Globulin Ratio 1.2 (1.1-1.8); Alkaline Phosphatase 115 U/L (38-126); Anion Gap 10.5 mEq/L (5-15); Aspartate Amino Transferase 79 U/L (14-36); Bilirubin,Total 0.6 mg/dl (0.2-1.3); Blood Urea Nitrogen 15 mg/dl (7-17); Carbon Dioxide 28 mmol/L (22.0-30.0); Chloride 101 mmol/L (98-107); Creatinine Clearance Estimated 38 mL/min (50-200); Estimated Glomerular Filt Rate 39 ml/min (>60); GFR (African American) 47 ML/MIN (>60); Globulin 3.1 g/dL (1.3-3.2); Glucose 100 mg/dl (74-100); Potassium 3.5 mmoL/L (3.5-5.1); Sodium 136 mmol/L (136-145); Total Protein,Serum 6.9 g/dl (6.3-8.2)
[2021-07-21 20:47] LABS: C-Reactive Protein 11.9 mg/L (0-4)
--- NOTE | 2021-07-21 20:55 | HMH.EDSOB ---
ED Disposition Clinical Impression: Asthma with exacerbation Qualifiers: Asthma severity: moderate Asthma persistence: unspecified Qualified Code(s): J45.901 - Unspecified asthma with (acute) exacerbation Disposition: Home, Self-Care Condition on Discharge: Good Instructions: DI for Asthma -- Adult Additional Instructions: fluids and use meds and see pcp for follow up Prescriptions: predniSONE [Prednisone 20mg Tab] 20 mg PO BID #10 tab Transmission Status: Pending to [facility] Azithromycin [Zithromax 250mg tab] 250 mg PO DIRECTED #6 tab Transmission Status: [facility] Referrals: Ana Gonzalez PA [Primary Care Provider] - - Critical Care Critical Care Time: No Attestation: On 07/21/21, the high probability of a clinically significant, sudden or life threatening deterioration of the following system(s) required my full and direct attention, intervention and personal management. The time I documented below is in addition to time spent performing reported procedures but includes the following listed in this critical care notation. Medical Decision Making - Medical Records Medical records reviewed: Yes: I reviewed the patient's medical records. - Brian Inquiry Pt receiving controlled substance: No Vital Signs: 07/21/21 20:01 Temperature 98.4 F Temperature Source Oral Pulse Rate [Apical] 110 H Respiratory Rate 20 Blood Pressure [Right Arm] 143/84 H Blood Pressure Mean [Right Arm] 103 Blood Pressure Source [Right Arm] Automatic Cuff Blood Pressure Position [Right Arm] Supine 02 Sat by Pulse Oximetry 89 L Oxygen Delivery Method Room Air - Lab Data Lab results reviewed: Yes: I reviewed the patient's lab results. Lab Results 07/21/21 20:13: WBC 11.4 H, RBC 4.20, Hgb 12.6, Hct 37.9, MCV 90.3, MCH 30.0, MCHC 33.2, RDW 14.1, Plt Count 200, MPV 9.4, Neut % (Auto) 49.1, Lymph % (Auto) 36.4, Cole % (Auto) 6.9, Eos % (Auto) 6.6, Baso % (Auto) 1.0, Neut # (Auto) 5.6, Lymph # (Auto) 4.2, Cole # (Auto) 0.8, Eos # (Auto) 0.8 H, Baso # (Auto) 0.1, ESR 135 H 07/21/21 20:13: Sodium 136, Potassium 3.5, Chloride 101, Carbon Dioxide 28, Anion Gap 10.5, BUN 15, Creatinine 1.40 H, Estimated Creat Clear 38, Estimated GFR 39 L, Est GFR ( Amer) 47 L, Glucose 100, Calcium 9.0, Total Bilirubin 0.6, AST 79 H, ALT 43, Alkaline Phosphatase 115, Troponin I < 0.01, C-Reactive Protein 11.9 H, Total Protein 6.9, Albumin 3.8, Globulin 3.1, Albumin/Globulin Ratio 1.2, Procalcitonin 0.166 07/21/21 20:13: SARS-CoV-2 (PCR) Not detected, Influenza A Untype (PCR) Not detected, Influenza Type B (PCR) Not detected 07/21/21 20:19: Specimen Source r/r, O2 % R/a, ABG pH 7.34 L, ABG pCO2 46.7 H, ABG pO2 62.7 L, ABG HCO3 24.7, ABG Total CO2 26.1, ABG O2 Saturation 92, ABG Base Excess -1.1, Slim Test Y 07/21/21 21:37: Urine Color Yellow, Urine Appearance Clear, Urine pH 5.0, Ur Specific Lincoln >= 1.030, Urine Protein Negative, Urine Glucose (UA) Negative, Urine Ketones Negative, Urine Blood Negative, Urine Nitrate Negative, Urine Bilirubin Negative, Urine Urobilinogen 2.0, Ur Leukocyte Esterase Negative, Urine WBC Occasional, Ur Squamous Epith Cells Occasional Result diagrams: 07/21/21 20:13 07/21/21 20:13 Orders (Tests/Meds): ED MEDICATIONS Generic Name Dose Route Start Last Admin Trade Name Freq PRN Reason Stop Dose Admin Sodium Chloride 1,000 mls @ 999 mls/hr 07/21/21 20:30 07/21/21 22:20 Sod Chlor 0.9% 1000ml Bag IV 07/21/21 21:30 999 mls/hr .[id number] STARLA Administration Discontinued Medications Generic Name Dose Route Start Last Admin Trade Name Freq PRN Reason Stop Dose Admin Levofloxacin 500 mg 07/21/21 22:33 Levofloxacin 500mg Tab PO 07/21/21 22:34 ONCE ONE ORDERS Category Date Time Status Troponin I Q3H Lab 07/21/21 23:30 Ordered Troponin I Q3H Lab 07/22/21 02:30 Ordered ECG Request by /Nse Stat Y 07/21/21 20:19 Ordered - Radiology Data
[2021-07-21 20:58] LABS: Troponin I < 0.01 ng/ml (0.00-0.034)
[2021-07-21 21:00] LABS: Procalcitonin 0.166 ng/mL (0.0-2.0)
[2021-07-21 21:30] LABS: Erythrocyte Sedimentation Rate 135 mm/hr (0-30)
[2021-07-21 21:43] LABS: Microscopic, Urine URINE MICROSCOPIC (MICROSCOPIC)
[2021-07-21 21:46] LABS: Appearance,Urine CLEAR (Clear); Bilirubin,Urine Negative (Negative); Blood, Urine Negative (Negative); Color,Urine YELLOW (Yellow); Glucose,Urine (UA) Negative (Negative); Ketones,Urine Negative (Negative); Leukocyte Esterase,Urine Negative (Negative); Nitrate,Urine Negative (Negative); Protein,Urine Negative (Negative); Specific Gravity, Urine >= 1.030 (1.005-1.030)
[2021-07-21 21:53] LABS: Squamous Epithelial Cell,Urine Occasional #/hpf (0-5); WBC,Urine Occasional #/hpf (0-3)
[2021-07-21 22:56] VITALS: BP 134/78; PULSE 90; RESP 20; TEMP 36.9; O2SAT 96
== END 2021-07-21 22:57 | disposition home or self-care (01) ==
PROVIDERS: Emergency Provider Emergency Medicine; PCP Physician Assistant Medical
DX: J45.901 Unspecified asthma with (acute) exacerbation (principal); I10 Essential (primary) hypertension; K21.9 Gastro-esophageal reflux disease without esophagitis; R42 Dizziness and giddiness
CPT/HCPCS: 71046; 80053; 81001; 82803; 84145; 84484; 85025; 85651; 86140; 93005; 96365; 99283; C9803; U0003; U0005